=== PATIENT | male | born 1945 ===

== ENCOUNTER → 2021-01-27 | Outpatient (CLI) | payer MEDICARE, OTHER | END | disposition home or self-care (01) | LOC: LAB 18:53 → LAB SHORT 18:53 | DX: L08.9 Local infection of the skin and subcutaneous tissue, unspecified (principal) | CPT/HCPCS: 87070; 87075; 87205 ==

== ENCOUNTER → 2023-04-03 | Outpatient (CLI) | payer MEDICARE, OTHER ==
[2023-04-03 16:48] LABS: BASOPHILS ABSOLUTE AUTO 0.04 K/mm3 (0.00-0.23); BASOPHILS PERCENT AUTO 1 % (0-2); EOSINOPHILS ABSOLUTE AUTO 0.08 K/mm3 (0.00-0.68); EOSINOPHILS PERCENT AUTO 1 % (0-6); Hematocrit 46.1 % (37.0-53.0); Hemoglobin 14.2 g/dL (13.5-17.5); IMMATURE GRAN ABSOLUTE AUTO 0.01 K/mm3 (0.00-0.10); IMMATURE GRAN PERCENT AUTO 0 % (0-1); LYMPHOCYTES ABSOLUTE AUTO 1.57 K/mm3 (0.84-5.20); LYMPHOCYTES PERCENT AUTO 25 % (21-46); MONOCYTES ABSOLUTE AUTO 0.47 K/mm3 (0.16-1.47); MONOCYTES PERCENT AUTO 8 % (4-13); Mean Corpuscular HGB 23.5 pg (26.0-34.0); Mean Corpuscular HGB Conc 30.8 g/dL (31.5-36.5); Mean Corpuscular Volume 77 fL (80-100); NEUTROPHILS PERCENT AUTO 65 % (41-73); Platelet Count 272 K/mm3 (150-400); RDW Coefficient Variation 17.2 % (11.7-14.2); RDW Standard Deviation 46.5 fL (35.1-46.3); Red Blood Cell Count 6.03 M/mm3 (4.30-5.90); White Blood Cell Count 6.27 K/mm3 (4.00-11.30)
[2023-04-03 18:35] LABS: Alanine Aminotransfer (ALT/SGP 27 U/L (12-78); Albumin, Blood 4.1 g/dL (3.4-5.0); Albumin/Globulin Ratio 1.2 (0.8-1.8); Alk Phos 73 U/L (50-136); Anion Gap 3 mmol/L (6-16); Aspartate Aminotrans (AST/SGOT 25 U/L (12-37); Bilirubin, Total 0.5 mg/dL (0.1-1.0); Blood Urea Nitrogen 12 mg/dL (8-24); Bun/Creatinine Ratio 13.5 (12.0-20.0); CO2, Blood 24 mmol/L (21-32); Calcium, Blood 9.6 mg/dL (8.5-10.1); Chloride, Blood 109 mmol/L (98-108); Creatinine, Blood 0.89 mg/dL (0.60-1.20); Globulin, Blood 3.4 g/dL (2.2-4.0); Glomerular Filtration Rate 87 (60-); Glucose, Blood 102 mg/dL (70-99); PSA, Free 0.468 ng/mL; Potassium, Blood 4.1 mmol/L (3.5-5.5); Sodium, Blood 136 mmol/L (136-145); Total Protein, Blood 7.5 g/dL (6.4-8.2)
== END | disposition home or self-care (01) ==
LOC: LAB 14:30 → LAB SHORT 14:30
PROVIDERS: Nurse Practitioner Family
DX: J43.9 Emphysema, unspecified (principal); N40.1 Benign prostatic hyperplasia with lower urinary tract symptoms
CPT/HCPCS: 80053; 84153; 84154; 85025

== ENCOUNTER 2023-06-02 19:41 | Emergency (ER) | payer MEDICARE, OTHER ==
[~2023-06-02] VITALS: Ht 172.7 cm; Wt 61.2 kg
[2023-06-02 21:28] LABS: BASOPHILS ABSOLUTE AUTO 0.02 K/mm3 (0.00-0.23); BASOPHILS PERCENT AUTO 0 % (0-2); EOSINOPHILS ABSOLUTE AUTO 0.05 K/mm3 (0.00-0.68); EOSINOPHILS PERCENT AUTO 1 % (0-6); Hematocrit 45.7 % (37.0-53.0); Hemoglobin 14.7 g/dL (13.5-17.5); IMMATURE GRAN ABSOLUTE AUTO 0.01 K/mm3 (0.00-0.10); IMMATURE GRAN PERCENT AUTO 0 % (0-1); LYMPHOCYTES ABSOLUTE AUTO 1.03 K/mm3 (0.84-5.20); LYMPHOCYTES PERCENT AUTO 16 % (21-46); MONOCYTES ABSOLUTE AUTO 0.39 K/mm3 (0.16-1.47); MONOCYTES PERCENT AUTO 6 % (4-13); Mean Corpuscular HGB 24.5 pg (26.0-34.0); Mean Corpuscular HGB Conc 32.2 g/dL (31.5-36.5); Mean Corpuscular Volume 76 fL (80-100); Mean Platelet Volume 9.3 fL (9.1-12.4); NEUTROPHILS ABSOLUTE AUTO 4.85 K/mm3 (1.96-9.15); NEUTROPHILS PERCENT AUTO 76 % (41-73); Platelet Count 196 K/mm3 (150-400); RDW Coefficient Variation 16.2 % (11.7-14.2); RDW Standard Deviation 44.6 fL (35.1-46.3); White Blood Cell Count 6.35 K/mm3 (4.00-11.30)
[2023-06-02 21:49] LABS: Albumin/Globulin Ratio 0.9 (0.8-1.8); Bilirubin, Total 0.4 mg/dL (0.1-1.0); Bun/Creatinine Ratio 13.4 (12.0-20.0); Creatinine, Blood 0.82 mg/dL (0.60-1.20); Globulin, Blood 4.3 g/dL (2.2-4.0); Potassium, Blood 4.3 mmol/L (3.5-5.5); Total Protein, Blood 8.3 g/dL (6.4-8.2)
[2023-06-02] MEDS ORDERED: MELO7.5 PO (22:10)
[2023-06-02] MEDS ORDERED: Ventolin/Prove6.7 GM INH (22:10)
[2023-06-02 23:38] LABS: Influenza A, PCR NEGATIVE (NEGATIVE); Influenza B, PCR NEGATIVE (NEGATIVE); Resp Syncytial Virus, PCR NEGATIVE (NEGATIVE); SARS-Cov-2 (COVID-19) PCR, MMC NEGATIVE (NEGATIVE)
[2023-06-03 00:30] VITALS: BP 111/67
[2023-06-03] MEDS ORDERED: LEVAQUIN750 MG PO (00:31)
== END 2023-06-03 00:45 | disposition home or self-care (01) ==
LOC: ER 19:41
PROVIDERS: Emergency Medicine; Student in an Organized Health Care Education/Training Program
DX: R05.9 Cough, unspecified (principal); Z20.822 Contact with and (suspected) exposure to COVID-19; Z79.899 Other long term (current) drug therapy; J44.9 Chronic obstructive pulmonary disease, unspecified; F17.200 Nicotine dependence, unspecified, uncomplicated
CPT/HCPCS: 0241U; 71046; 80053; 85025; 93005; 93010; 94644; 94664; 99284-25; 99407; A9270

== ENCOUNTER → 2025-05-22 | Outpatient (CLI) | payer MEDICARE, OTHER ==
[~2025-05-22] MED LIST: LEVAQUIN750 MG PO; MELO7.5 PO; Ventolin/Prove6.7 GM INH
[2025-05-22 16:46] LABS: BASOPHILS ABSOLUTE AUTO 0.04 K/mm3 (0.00-0.23); BASOPHILS PERCENT AUTO 1 % (0-2); EOSINOPHILS ABSOLUTE AUTO 0.04 K/mm3 (0.00-0.68); EOSINOPHILS PERCENT AUTO 1 % (0-6); Hematocrit 51.9 % (37.0-53.0); Hemoglobin 17.4 g/dL (13.5-17.5); IMMATURE GRAN ABSOLUTE AUTO 0.02 K/mm3 (0.00-0.10); IMMATURE GRAN PERCENT AUTO 0 % (0-1); LYMPHOCYTES ABSOLUTE AUTO 1.15 K/mm3 (0.84-5.20); LYMPHOCYTES PERCENT AUTO 21 % (21-46); MONOCYTES PERCENT AUTO 7 % (4-13); Mean Corpuscular HGB 29.1 pg (26.0-34.0); Mean Corpuscular HGB Conc 33.5 g/dL (31.5-36.5); Mean Corpuscular Volume 87 fL (80-100); NEUTROPHILS ABSOLUTE AUTO 3.97 K/mm3 (1.96-9.15); NEUTROPHILS PERCENT AUTO 71 % (41-73); Platelet Count 178 K/mm3 (150-400); RDW Coefficient Variation 13.6 % (11.7-14.2); RDW Standard Deviation 44.5 fL (35.1-46.3); Red Blood Cell Count 5.97 M/mm3 (4.30-5.90); White Blood Cell Count 5.62 K/mm3 (4.00-11.30)
[2025-05-22 17:05] LABS: Albumin, Blood 3.9 g/dL (3.4-5.0); Albumin/Globulin Ratio 1.1 (0.8-1.8); Bilirubin, Total 0.7 mg/dL (0.1-1.0); Bun/Creatinine Ratio 14.2 (12.0-20.0); Calcium, Blood 9.2 mg/dL (8.5-10.1); Creatinine, Blood 0.84 mg/dL (0.60-1.20); Globulin, Blood 3.6 g/dL (2.2-4.0); Potassium, Blood 3.7 mmol/L (3.5-5.5); Total Protein, Blood 7.5 g/dL (6.4-8.2)
== END | disposition home or self-care (01) ==
LOC: LAB 15:30 → LAB SHORT 15:30
PROVIDERS: Physician Assistant
DX: R10.9 Unspecified abdominal pain (principal); R19.7 Diarrhea, unspecified
CPT/HCPCS: 80053; 83690; 85025

== ENCOUNTER → 2025-05-24 | Outpatient (CLI) | payer MEDICARE, OTHER ==
[2025-05-24 18:33] LABS: Adenovirus F 40/41 Not Detected (NOT DETECT); Astrovirus Not Detected (NOT DETECT); Campylobacter Sp Not Detected (NOT DETECT); Cryptosporidium Not Detected (NOT DETECT); Cyclospora Cayetanensis Not Detected (NOT DETECT); E. Coli O157 Not Detected (NOT DETECT); Entamoeba Histolytica Not Detected (NOT DETECT); Enteroaggregative E. coli-EAEC Not Detected (NOT DETECT); Enteropathogenic E. coli-EPEC Not Detected (NOT DETECT); Enterotoxigenic E. coli-ETEC Not Detected (NOT DETECT); Giardia Lamblia Not Detected (NOT DETECT); Norovirus GI/GII Not Detected (NOT DETECT); Plesiomonas Shigelloides Not Detected (NOT DETECT); Rotavirus A Not Detected (NOT DETECT); Salmonella Sp Not Detected (NOT DETECT); Sapovirus Not Detected (NOT DETECT); Shiga Toxin-prod E. coli-STEC Not Detected (NOT DETECT); Shigella/Enteroin E. coli-EIEC Not Detected (NOT DETECT); Vibrio Cholerae Not Detected (NOT DETECT); Vibrio Sp Not Detected (NOT DETECT); Yersinia Enterocolitica Not Detected (NOT DETECT)
[2025-05-27 13:10] LABS: OVA AND PARASITE,FECAL INTERP Negative (Negative)
== END | disposition home or self-care (01) ==
LOC: LAB SHORT 16:49 → LAB 16:49
PROVIDERS: Physician Assistant
DX: R19.7 Diarrhea, unspecified (principal); R10.9 Unspecified abdominal pain
CPT/HCPCS: 87177; 87209; 87507

== ENCOUNTER 2025-06-02 15:27 | Inpatient (IN) | payer MEDICARE, OTHER ==
[~2025-06-02] VITALS: Ht 172.7 cm; Wt 62.5 kg
[~2025-06-02 15:27] MED LIST changes: +ALBU90OI INH; -Ventolin/Prove6.7 GM INH
[2025-06-02] MEDS ORDERED: Diltiazem HCl 5 MG / ML 5ML Vial IV ONE (16:10)
[2025-06-02 16:16] LABS: BASOPHILS ABSOLUTE AUTO 0.04 K/mm3 (0.00-0.23); BASOPHILS PERCENT AUTO 1 % (0-2); EOSINOPHILS ABSOLUTE AUTO 0.08 K/mm3 (0.00-0.68); EOSINOPHILS PERCENT AUTO 1 % (0-6); Hematocrit 51.0 % (37.0-53.0); Hemoglobin 17.1 g/dL (13.5-17.5); IMMATURE GRAN ABSOLUTE AUTO 0.01 K/mm3 (0.00-0.10); IMMATURE GRAN PERCENT AUTO 0 % (0-1); LYMPHOCYTES ABSOLUTE AUTO 1.62 K/mm3 (0.84-5.20); LYMPHOCYTES PERCENT AUTO 23 % (21-46); MONOCYTES ABSOLUTE AUTO 0.71 K/mm3 (0.16-1.47); MONOCYTES PERCENT AUTO 10 % (4-13); Mean Corpuscular HGB Conc 33.5 g/dL (31.5-36.5); Mean Corpuscular Volume 87 fL (80-100); NEUTROPHILS ABSOLUTE AUTO 4.65 K/mm3 (1.96-9.15); NEUTROPHILS PERCENT AUTO 65 % (41-73); NRBC ABSOLUTE 0.00 K/mm3 (0.00-0.02); NRBC Auto 0.0 /100 WBC (0.0-0.2); Platelet Count 202 K/mm3 (150-400); RDW Coefficient Variation 13.7 % (11.7-14.2); RDW Standard Deviation 44.1 fL (35.1-46.3)
[2025-06-02 16:40] LABS: Alanine Aminotransfer (ALT/SGP 30.0 U/L (12-78); Albumin, Blood 3.9 g/dL (3.4-5.0); Albumin/Globulin Ratio 1.1 (0.8-1.8); Anion Gap 8.0 mmol/L (3-11); Aspartate Aminotrans (AST/SGOT 29.0 U/L (12-37); Bilirubin, Total 0.5 mg/dL (0.1-1.0); Blood Urea Nitrogen 10.0 mg/dL (8-24); CO2, Blood 25.0 mmol/L (21-32); Calcium, Blood 9.1 mg/dL (8.5-10.1); Chloride, Blood 107.0 mmol/L (98-108); Creatinine, Blood 0.94 mg/dL (0.60-1.20); Globulin, Blood 3.7 g/dL (2.2-4.0); Glucose, Blood 85.0 mg/dL (70-99); Potassium, Blood 4.0 mmol/L (3.5-5.5); Sodium, Blood 136.0 mmol/L (136-145); Total Protein, Blood 7.6 g/dL (6.4-8.2)
[2025-06-02] MEDS ORDERED: NS 1,000 ML IV SCH ×2 (17:10→19:10)
[2025-06-02 17:15] VITALS: BP 90/60
[2025-06-02] MEDS ORDERED: HYDROmorphone HCl/Pf 1MG SYR IV ONE (17:20)
[2025-06-02 18:00] VITALS: BP 111/75
[2025-06-02] MEDS ORDERED: Ondansetron HCl 2 MG / ML 2ML Vial IV PRN (19:10)
[2025-06-02] MEDS ORDERED: Albuterol 2.5 MG/3 ML VIAL INH PRN (19:10)
[2025-06-02] MEDS ORDERED: Metoprolol Tartrate 1 MG/ML 5 ML VIAL IV PRN (19:15)
[2025-06-02 20:14] LABS: Magnesium, Blood 2.1 mg/dL (1.6-2.4); Thyroid Stimulating Hormone 5.92 uIU/mL (0.360-4.800)
[2025-06-02] MEDS ORDERED: METR500 PO (20:53)
[2025-06-02 21:23] VITALS: BP 125/106
[2025-06-02 23:59] VITALS: BP 100/80
[2025-06-03 04:08] VITALS: BP 122/95
--- NOTE | 2025-06-03 04:24 | NUR ---
SUMMARY: PT AOX4, SBA IN ROOM. ON IV FLUIDS. NPO SINCE 42 FOR POSSIBLE INTERVENTION TODAY. 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 HAD A LOOSE BM AND WAS SENT OFF TO LAB FOR CDIFF TESTING. PT DENIES CHEST PAIN AND PRESSURE AT THIS TIME. CALL LIGHT WITHIN REACH AND BED IN LOW POSITION.
[2025-06-03 05:56] LABS: Campylobacter Sp Not Detected (NOT DETECT); E. Coli O157 Not Detected (NOT DETECT); Enteroaggregative E. coli-EAEC Not Detected (NOT DETECT); Enteropathogenic E. coli-EPEC Not Detected (NOT DETECT); Enterotoxigenic E. coli-ETEC Not Detected (NOT DETECT); Salmonella Sp Not Detected (NOT DETECT); Shiga Toxin-prod E. coli-STEC Not Detected (NOT DETECT); Shigella/Enteroin E. coli-EIEC Not Detected (NOT DETECT); Vibrio Sp Not Detected (NOT DETECT)
[2025-06-03 05:59] VITALS: BP 125/97
[2025-06-03 07:18] VITALS: BP 114/88
[2025-06-03] MEDS ORDERED: Benzocaine Oral Spray 0.5ML UD ONE (09:13)
[2025-06-03] MEDS ORDERED: NS 1,000 ML IV ONE (10:43)
--- NOTE | 2025-06-03 12:50 | NUR ---
PT HAS BEEN ZOIE TO [facility] [place] FOR JOB/CARDIVERSION WITH ANESTHESIA. DR REYES AND DR STATON AT BEDSIDE FOR DURATION OF PROCEDURE. SEE ANESTHESIA RECORDS FOR MEDS GIVEN AND VS DURING PROCEDURE. SUCCESSFUL CARDIOVERSION PERFORMED WITH 50J SYNCHRONIZED SHOCK. PT BACK TO MEDICAL FLOOR POST PROCEDURE IN NO DISTRESS.
[2025-06-03] MEDS ORDERED: ANORO ELLIPTA1 EAC1 INH (14:26)
[2025-06-03] MEDS ORDERED: METO25 PO (15:33)
[2025-06-03] MEDS ORDERED: ELIQUIS5 M2 PO (15:33)
[2025-06-03] MEDS ORDERED: LEVSOD25 PO (15:33)
--- NOTE | 2025-06-03 16:02 | NUR ---
SHIFT SUMMARY AND DISCHARGE PATIENT ALERT AND INTERACTIVE. PATIENT INDEPENDENT IN THE ROOM. PATIENT VERBALIZING "HEART PAIN" PRIOR TO GOING TO [facility] FOR JOB AND CARDIOVERSION. PATIENT CARDIOVERTED TO A SR. PATIENT STATES "HEART PAIN" GONE AFTER CARDIOVERSION. PATIENT WORKED WITH PT PRIOR TO DISCHARGE. PATIENT ABLE TO AMBULATE INDEPENDENTLY. PATIENT DISCHARGED TO HOME. DISCHARGE INSTRUCTIONS REVIEWED WITH PATIENT. EDUCATION PROVIDED RELATED TO BLOOD THINNERS, CARDIOVERSION, AND METOPROLOL. IVS REMOVED PRIOR TO DISCHARGE. PATIENT TAKEN OUT VIA WHEELCHAIR. PATIENT TO MEET RIDE OUTSIDE. PATIENT VERBALIZED RELUCTANCE TO TAKE THYRIOD MEDICATIONS. PROVIDED EDUCATION RELATED TO THYROID AND ARRYTHMIAS. PATIENT WILLING TO TAKE MEDS UNTIL SEES PCP.
[2025-06-03] MEDS ORDERED: Propofol 10mg/ml 20 ml Vial (Procedural) IV ONE (17:19)
[2025-06-03] MEDS ORDERED: Etomidate 2MG / ML 10ML Vial IV ONE (17:19)
[2025-06-03] MEDS ORDERED: Midazolam HCl 1MG / ML 2ML Vial IV ONE (17:19)
== END 2025-06-03 15:50 | disposition home or self-care (01) | DRG 310 ==
LOC: ER 15:27 → MEDS 19:07 → ERHOLD 19:07 → MEDS 21:13
PROVIDERS: Nurse Practitioner Acute Care; Student in an Organized Health Care Education/Training Program; ADMIT Internal Medicine
PROC: 5A2204Z Restoration of Cardiac Rhythm, Single (ICD-10-PCS; principal; 2025-06-03)
DX: I48.92 Unspecified atrial flutter (principal); I48.91 Unspecified atrial fibrillation; J44.9 Chronic obstructive pulmonary disease, unspecified; M19.90 Unspecified osteoarthritis, unspecified site; R19.7 Diarrhea, unspecified; E86.0 Dehydration; I95.9 Hypotension, unspecified; E03.9 Hypothyroidism, unspecified; I44.30 Unspecified atrioventricular block; F17.210 Nicotine dependence, cigarettes, uncomplicated; Z79.899 Other long term (current) drug therapy
CPT/HCPCS: 71045; 80053; 83690; 83735; 83880; 84443; 84484; 85025; 87507; 92960; 93005; 93010; 93306; 93312; 93325; 94760; 97110; 97112; 97161; A9270; J0153; J1171; J2250; J2704; J7030